=== PATIENT | female | born 1980 | race Caucasian/White ===

== ENCOUNTER 2017-03-28 22:05 | Emergency (ER) | payer MEDICAID ==
[~2017-03-28] VITALS: Ht 160 cm; Wt 75.0 kg
[2017-03-28 22:11] VITALS: Ht 160 cm; Wt 75.0 kg
[2017-03-28 22:59] VITALS: TEMP 98.1
--- NOTE | 2017-03-28 23:03 | ERD ---
ER Documentation Chief Complaint Date/Time DATE: 03/28/17 TIME: 23:00 Chief Complaint panic attack- states she is "streesed out", family problems HPI Patient is a 36-year-old female who presents with gradual onset, constant, progressive anxiety associated with lightheadedness that began approximately 30 minutes after eating a gummy bear that her gave her. She states that now she feels tired and depressed. She denies feeling depressed prior to eating gummy bear. Her states that she has had anxiety issues in the recent past. She denies prior alcohol or drug ingestion. She denies ever using marijuana. She reports having dry mouth. ROS All systems reviewed and are negative except as per history of present illness. Medications Home Meds No Active Prescriptions or Reported Meds Allergies Allergies: Coded Allergies: No Known Allergy (Unverified , 03/28/17) PMhx/Soc Past medical history: Anxiety Past surgical history: Denies Social history: Denies tobacco, alcohol or illicit drugs. FmHx Family History: No coronary disease, No diabetes Physical Exam Vitals Vital Signs Date Time Temp Pulse Resp B/P Pulse Ox O2 Delivery O2 Flow Rate FiO2 03/28/17 22:59 98.1 70 14 119/78 98 Room Air 03/28/17 22:11 99.8 106 20 126/89 98 Physical Exam Const: Alert, slightly lethargic, teary-eyed Head: Atraumatic Eyes: Mild conjunctival injection, no pallor, no icterus ENT: Normal External Ears, Nose and Mouth. Tacky mucous membranes Neck: Full range of motion..~ No meningismus. Resp: Clear to auscultation bilaterally, No wheezes, rales Cardio: Regular rate and rhythm, no murmurs Abd: Soft, non tender, non distended. Skin: No petechiae or rashes Back: No midline or flank tenderness Ext: No cyanosis, or edema Neur: Awake and alert, Cranial nerves II through XII intact bilaterally, strength and sensation full in 4 extremities, no tremor Psych: Anxious affect, teary-eyed Results 24 hrs Laboratory Tests Test 03/28/17 23:12 03/28/17 23:17 Urine Color YELLOW Urine Clarity SLIGHTLY CLOUDY Urine pH 6.0 Urine Specific [place] 1.023 Urine Ketones NEGATIVEmg/dL Urine Nitrite NEGATIVEmg/dL Urine Bilirubin NEGATIVEmg/dL Urine Urobilinogen NEGATIVEmg/dL Urine Leukocyte Esterase TRACELeu/ul Urine Microscopic RBC 1/HPF Urine Microscopic WBC 3/HPF Urine Squamous Epithelial Cells FEW/HPF Urine Mucus MODERATE/HPF Urine Hemoglobin NEGATIVEmg/dL Urine Glucose NEGATIVEmg/dL Urine Total Protein NEGATIVEmg/dl Urine Test NEGATIVE Urine Opiates Screen Negative Urine Barbiturates Negative Urine Amphetamines Screen Negative Urine Benzodiazepines Screen Negative Urine Cocaine Screen Negative Urine Cannabinoids Positive Bedside Urine pH (LAB) 7.0 Bedside Urine Protein (LAB) Negative Bedside Urine Glucose (UA) Negative Bedside Urine Ketones (LAB) Negative Bedside Urine Blood Trace-lysed Bedside Urine Nitrite (LAB) Negative Bedside Urine Leukocyte Esterase (L Trace Current Medications Medications (Trade) Dose Ordered Sig/Alverto Route PRN Reason Start Time Stop Time Status Last Admin Dose Admin Sodium Chloride (NS) 1,000 ml @ 1,000 mls/hr Q1H ONCE IV 03/28/17 23:30 03/29/17 00:29 DC 03/28/17 23:48 Lorazepam (Ativan) 0.5 mg ONCE ONCE IV 03/28/17 23:30 03/28/17 23:31 DC 03/28/17 23:45 Procedures/MDM MDM: Patient is a 36-year-old female who presents with dry mouth, lightheadedness, and anxiety after eating a gummy bear was given to her by her . Her tox screen is positive for cannabis. The patient denies intentional ingestion of cannabis in the past. Her symptoms are consistent with cannabis intoxication. There are no signs of coingestion. The patient is well-appearing except for appearing slightly intoxicated. She has normal vital signs and negative UA. She is stable for discharge home and is not vomiting. Departure Diagnosis: Primary Impression: Anxiety Additional Impression: Cannabis abuse with uncomplicated intoxication Condition: ADITI Juarez MD Mar 28, 2017 23:03
[2017-03-28 23:09] LABS: URINE BLOOD (Dip) POC Trace-lysed (NEGATIVE)
[2017-03-28] MEDS ORDERED: SOD CHLORIDE 0.9% 1,000 ML IV ONE (23:30)
[2017-03-28] MEDS ORDERED: LORAZEPAM 2 MG INJ IV ONE (23:30)
[2017-03-28 23:31] LABS: ADD UMIC YES; UR ASCORBIC ACID NEGATIVE (NEGATIVE); UR BILIRUBIN (Dip) NEGATIVE (NEGATIVE); UR BLOOD (Dip) NEGATIVE (NEGATIVE); UR CLARITY SLIGHTLY CLOUDY (CLEAR); UR COLOR YELLOW (YELLOW); UR GLUCOSE (Dip) NEGATIVE (NEGATIVE); UR KETONES (Dip) NEGATIVE (NEGATIVE); UR LEUKOCYTE ESTERASE (Dip) TRACE Leu/ul (NEGATIVE); UR MUCUS MODERATE /HPF (NONE SEEN); UR NITRITE (Dip) NEGATIVE (NEGATIVE); UR RBC 1 /HPF (0-5); UR SPECIFIC GRAVITY (Dip) 1.023 (1.003-1.030); UR SQUAMOUS EPITHELIAL CELL FEW /HPF (FEW); UR TOTAL PROTEIN (Dip) NEGATIVE (NEGATIVE); UR UROBILINOGEN (Dip) NEGATIVE (NEGATIVE)
[2017-03-28 23:53] LABS: BARBITURATES Negative (NEGATIVE); BENZODIAZEPINES Negative (NEGATIVE); CANNABINOIDS Positive (NEGATIVE); COCAINE Negative (NEGATIVE); OPIATES Negative (NEGATIVE)
[2017-03-29 04:10] VITALS: BP 117/69; PULSE 76; RESP 17
== END 2017-03-29 05:00 | disposition home or self-care (01) ==
LOC: E/R 22:05
DX: F41.9 Anxiety disorder, unspecified (principal); F12.120 Cannabis abuse with intoxication, uncomplicated; R40.2142 Coma scale, eyes open, spontaneous, at arrival to emergency department; R40.2252 Coma scale, best verbal response, oriented, at arrival to emergency department; R40.2362 Coma scale, best motor response, obeys commands, at arrival to emergency department
CPT/HCPCS: 80307; 81001; 84703; 96374; J2060; J7030; Z7502; 81003